=== PATIENT | female | born 1975 | race African-American/Black ===

== ENCOUNTER → 2023-01-10 | Outpatient (CLI) | payer BC | END | disposition home or self-care (01) | LOC: MAMMO 09:50 | DX: Z12.31 Encounter for screening mammogram for malignant neoplasm of breast (principal) | CPT/HCPCS: 77067 ==

== ENCOUNTER → 2023-02-19 | Outpatient (CLI) | payer BC | END | disposition home or self-care (01) | LOC: US 15:09 | DX: D25.9 Leiomyoma of uterus, unspecified (principal); N93.9 Abnormal uterine and vaginal bleeding, unspecified | CPT/HCPCS: 76830; 76856 ==

== ENCOUNTER → 2023-04-24 | Outpatient (CLI) | payer BC | END | disposition home or self-care (01) | LOC: CT 10:34 | DX: H65.31 Chronic mucoid otitis media, right ear (principal) | CPT/HCPCS: 70480 ==

== ENCOUNTER → 2023-05-20 | Outpatient (CLI) | payer BC | END | disposition home or self-care (01) | LOC: MRI 10:36 | DX: G43.C1 Periodic headache syndromes in child or adult, intractable (principal) | CPT/HCPCS: 70551 ==

== ENCOUNTER → 2023-09-26 | Outpatient (CLI) | payer BC | END | disposition home or self-care (01) | LOC: US 09:43 | DX: N92.0 Excessive and frequent menstruation with regular cycle (principal); D25.9 Leiomyoma of uterus, unspecified | CPT/HCPCS: 76830; 76856 ==

== ENCOUNTER → 2024-02-06 | Outpatient (CLI) | payer BC | END | disposition home or self-care (01) | LOC: MAMMO 07:49 | DX: Z12.31 Encounter for screening mammogram for malignant neoplasm of breast (principal); R92.323 Mammographic fibroglandular density, bilateral breasts | CPT/HCPCS: 77063; 77067 ==

== ENCOUNTER → 2024-02-06 | Outpatient (CLI) | payer BC | END | disposition home or self-care (01) | LOC: CT 08:11 | DX: H66.91 Otitis media, unspecified, right ear (principal) | CPT/HCPCS: 70480 ==

== ENCOUNTER 2024-07-21 08:59 | Emergency (ER) | payer BC ==
[~2024-07-21] VITALS: Ht 172.7 cm; Wt 79.0 kg
[2024-07-21 09:10] VITALS: O2SAT 100
[2024-07-21] MEDS: LIDOCAINE 5% PATCH TOP SCH (10:03)
[2024-07-21] MEDS: ACETAMINOPHEN 500MG TABLET PO ONE (10:03)
[2024-07-21] MEDS ORDERED: LIDO1ADH71 EXT (11:00)
[2024-07-21] MEDS ORDERED: CYCL10TA21 MT (11:00)
[2024-07-21] MEDS ORDERED: ACET-2708 PO (11:01)
[2024-07-21 11:22] VITALS: BP 145/76; PULSE 78; RESP 18; TEMP 36.9; O2SAT 100
== END 2024-07-21 11:24 | disposition home or self-care (01) ==
LOC: ER 08:59
DX: S16.1XXA Strain of muscle, fascia and tendon at neck level, initial encounter (principal); Z90.49 Acquired absence of other specified parts of digestive tract; Z79.899 Other long term (current) drug therapy; V89.2XXA Person injured in unspecified motor-vehicle accident, traffic, initial encounter; Y93.89 Activity, other specified; Y92.89 Other specified places as the place of occurrence of the external cause; Y99.8 Other external cause status
CPT/HCPCS: 73562; 81025; 99284

== ENCOUNTER → 2024-08-03 | Outpatient (CLI) | payer BC ==
[~2024-08-03] MED LIST: ACET-2708 PO; CYCL10TA21 MT; LIDO1ADH71 EXT
== END | disposition home or self-care (01) ==
LOC: MRI 10:49 → EDBD 10:49
PROVIDERS: ATTEND Neurological Surgery
DX: M47.812 Spondylosis without myelopathy or radiculopathy, cervical region (principal); M48.03 Spinal stenosis, cervicothoracic region; M50.223 Other cervical disc displacement at C6-C7 level; M25.78 Osteophyte, vertebrae
CPT/HCPCS: 72141

== ENCOUNTER → 2024-08-31 | Outpatient (CLI) | payer BC | END | disposition home or self-care (01) | LOC: MRI 07:59 | DX: R60.0 Localized edema (principal); M25.562 Pain in left knee | CPT/HCPCS: 73721 ==

== ENCOUNTER → 2024-08-31 | Outpatient (CLI) | payer BC | END | disposition home or self-care (01) | LOC: MRI 08:04 | PROVIDERS: ATTEND Neurological Surgery | DX: M47.817 Spondylosis without myelopathy or radiculopathy, lumbosacral region (principal); M48.07 Spinal stenosis, lumbosacral region; M51.27 Other intervertebral disc displacement, lumbosacral region; M41.86 Other forms of scoliosis, lumbar region | CPT/HCPCS: 72148 ==